=== PATIENT | male | born 1965 | race Caucasian/White ===

== ENCOUNTER 2019-11-09 23:58 | Inpatient (IN) | payer MEDICAID ==
[~2019-11-09] VITALS: Ht 180.3 cm; Wt 95.3 kg
--- NOTE | 2019-11-09 23:58 | NUR ---
PT [facility]. TAKEN TO BED 4
[2019-11-10 00:03] VITALS: BP 141/76
--- NOTE | 2019-11-10 00:03 | NUR ---
54 Y/O MALE BIBA FROM [facility]. PRESENTS TO ED, C/O CHEST PAIN THAT STARTED 30 MINS PRIOR COMING TO ED. PT STATES HAVING ARGUMENT WITH GIRLFRIEND PRIOR TO HAVING SYMPTOM. CHEST PAIN DOES NOT RADIATE, 10/10 PAIN SCALE. HX OF CVA LAST MARCH, NO DEFICITS NOTED DURING ASSESSMENT. PT RECEIVED 1 DOSE OF NITRO AND 1 DOSE OF ASPIRIN. PT STATES NO RELIEF. PT ABLE TO AMBULATE WITH SLOW STEADY GAIT. PT VSS. PLACED ON MONITOR. ERMD AWARE. WILL CONTINUE TO MONITOR.
--- NOTE | 2019-11-10 00:25 | NUR ---
LAB AT BEDSIDE DRAWING BLOOD
[2019-11-10 00:53] LABS: BASOPHILS % (AUTO) 0.8 % (0.0-2.0); EOSINOPHILS # (AUTO) 0.2 K/uL (0-0.4); EOSINOPHILS % (AUTO) 3.4 % (0.0-4.0); HEMATOCRIT 41.7 % (36-52); HEMOGLOBIN 14.2 g/dL (12.0-18.0); LYMPHOCYTES % (AUTO) 32.9 % (20.5-51.1); MEAN CORPUSCULAR HEMOGLOBIN 32 pg (27-31); MEAN CORPUSCULAR HGB CONC 34 g/dL (33-37); MEAN CORPUSCULAR VOLUME 94.9 fL (80-94); MONOCYTES # (AUTO) 0.4 K/uL (0.8-1.0); MONOCYTES % (AUTO) 6.4 % (1.7-9.3); NEUTROPHILS # (AUTO) 3.5 K/uL (1.8-7.7); NEUTROPHILS % (AUTO) 56.5 % (42.2-75.2); PLATELET COUNT (AUTO) 249 K/uL (140-450); RED CELL DISTRIBUTION WIDTH 13.1 % (11.6-13.7); WHITE BLOOD COUNT (AUTO) 6.2 K/uL (4.8-10.8)
[2019-11-10 01:02] LABS: ANION GAP 14.2 (8-16); CARBON DIOXIDE 25.7 mmol/L (21-32); POTASSIUM 3.9 mmol/L (3.5-5.1)
[2019-11-10 01:07] LABS: ALBUMIN 3.8 g/dL (3.4-5.0); TOTAL BILIRUBIN 0.2 mg/dL (0.0-1.0)
[2019-11-10] MEDS ORDERED: KETOROLAC 30 MG/ML VIAL IVP ONE (01:30)
--- NOTE | 2019-11-10 01:42 | NUR ---
Dr. Amato examining patient.
[2019-11-10] MEDS ORDERED: NACL 0.9% 1,000 ML IV ONE (01:55)
[2019-11-10] MEDS ORDERED: fentaNYL 0.05 MG/ML VIAL IVP ONE (02:10)
--- NOTE | 2019-11-10 02:32 | NUR ---
PT PLACED ON 2L O2 VIA [facility]
[2019-11-10] MEDS ORDERED: ASPI-1205 PO (02:42)
[2019-11-10] MEDS ORDERED: NACL 0.9% 1,000 ML IV SCH (02:42)
[2019-11-10] MEDS ORDERED: MORPHINE SULFATE 2 MG/ML SYR IVP PRN (02:45)
[2019-11-10] MEDS ORDERED: DOCUSATE SODIUM 100 MG GELCAP PO PRN (02:45)
[2019-11-10] MEDS ORDERED: HYDROcodone/APAP 7.5/325 MG 1 TAB PO PRN (02:45)
[2019-11-10] MEDS ORDERED: ACETAMINOPHEN 325 MG TAB PO PRN (02:45)
[2019-11-10] MEDS ORDERED: ONDANSETRON 4 MG/2 ML VIAL IM/IVP PRN (02:45)
[2019-11-10] MEDS ORDERED: NITROGLYCERIN 0.4 MG TAB SL ONE (02:50)
[2019-11-10 03:01] LABS: APPEARANCE,URINE CLEAR (CLEAR); BILIRUBIN,URINE NEGATIVE (NEGATIVE); BLOOD, URINE 1+ (NEGATIVE); COLOR,URINE YELLOW (YELLOW); LEUKOCYTE ESTERASE ,URINE NEGATIVE (NEGATIVE); NITRITE, URINE NEGATIVE (NEGATIVE); PH,URINE 5.5 (5.0-9.0); UGLUCOSE NEGATIVE (NEGATIVE)
[2019-11-10 03:09] LABS: RBC,URINE 0-5 /HPF (0-5); WBC,URINE 0-5 /HPF (0-5)
[2019-11-10 03:14] LABS: PROTHROMBIN TIME 9.6 secs (10.8-13.4)
[2019-11-10 03:15] LABS: BARBITURATE, URINE NEG. ng/ml (NEG <=200); BENZODIAZEPINE, URINE NEG. ng/mL (NEG <=200); CANNABINOID, URINE NEG. ng/mL (NEG <=50); COCAINE, URINE NEG. ng/mL (NEG <=300); OPIATE, URINE NEG. ng/mL (NEG <=2000)
[2019-11-10 03:15] LABS: CHOL/HDL RATIO 6.2 (1-4.5); FREE T4 (FREE THYROXINE) 0.83 ng/dL (0.76-1.46); MAGNESIUM 2.1 mg/dL (1.8-2.4); PHOSPHORUS 4.6 mg/dL (2.5-4.9); THYROID STIMULATING HORMONE 1.46 uIU/mL (0.34-3.74)
[2019-11-10 03:20] VITALS: BP 152/81
--- NOTE | 2019-11-10 03:20 | NUR ---
RECEIVED FROM ED VIA [facility]. BEDSIDE REPORT GIVEN BY ED NURSE DEL. PT HAS A NASAL CANNULA BUT CAN TOLERATE ROOM AIR. PT IS AMBULATORY. IV ACCESS ON RIGHT FOOT 22 AND LEFT AC 20 GAUGE. ORIENTED TO ROOM. MRSA SWAB DONE AND SENT TO LAB. INITIAL ASSESSMENT DONE. INITIAL VITALS TAKEN. CALL LIGHT PLACED WITHIN PATIENT REACH. BOARD UPDATED. BED IN LOW, SAFETY MEASURES IN PLACE. WILL CONTINUE TO MONITOR PATIENT.
--- NOTE | 2019-11-10 03:20 | NUR ---
PT ADMITTED TO [facility] RM 111B. TRANSFERRED PT VIA [facility] WITH DAVY EMT; STABLE CONDITION. REPORT GIVEN TO HAILEY COTE. TRANSFER OF CARE AT THIS TIME.
[2019-11-10 03:23] LABS: PHENCYCLIDINE SCREEN,URINE NEG. ng/mL (NEG <=25)
[2019-11-10] MEDS ORDERED: KETOROLAC 15 MG/ML VIAL IVP PRN (03:30)
--- NOTE | 2019-11-10 06:30 | NUR ---
0600-PATIENT CALLED THROUGH CALL LIGHT. PATIENT WANTED TO NOTIFY THAT HE WANTED TO SIGN OFF FROM THE HOSPITAL. I EDUCATED THE PATIENT ABOUT GOING AGAINST MEDICAL ADVICE AND HE SAID HE WANTED TO STILL LEAVE. I NOTIFIED THE RESIDENT ON DUTY, DR. JURADO, AND SHE CAME TO TALK TO THE PATIENT. SHE EDUCATED THE PATIENT ABOUT THE RISK OF LEAVING AGAINST MEDICAL ADVICE AND PATIENT STILL DECIDED HE WANTED TO LEAVE. 0610- AMA FORM SIGNED BY MD AND PATIENT. ID BAND REMOVED. IV LINES REMOVED. TELE LEADS REMOVED. PATIENT CHANGED OUT OF GOWN. PATIENT TOOK ALL HIS BELONGINGS. 0630- PATIENT OUT OF FACILITY.
--- NOTE | 2019-11-10 06:40 | NUR ---
PATIENT HAS BEEN SCREENED AND CATEGORIZED MODERATE NUTRITION RISK. PATIENT WILL BE SEEN WITHIN 3-5 DAYS OF ADMISSION. 11/12/19-11/14/19 RAE SHAVER MS, RDN
[2019-11-10] MEDS ORDERED: ATORVASTATIN 20 MG TAB PO SCH (09:00)
[2019-11-10] MEDS ORDERED: PANTOPRAZOLE 40 MG TABEC PO SCH (09:00)
[2019-11-10] MEDS ORDERED: ASPIRIN 81 MG TAB.CHEW PO SCH (09:00)
[2019-11-10] MEDS ORDERED: METOPROLOL SUCCINATE 50 MG TABER PO SCH (09:00)
[2019-11-10] MEDS ORDERED: LISINOPRIL 5 MG TAB PO SCH (09:00)
[2019-11-11 08:07] LABS: T4 (THYROXINE) 6.2 ug/dL (4.5-12.0)
== END 2019-11-10 06:35 | disposition left against medical advice (07) | DRG 243 ==
LOC: MED 23:58 → MTU 11-10 02:46
PROVIDERS: ADMIT General Practice; ATTEND General Practice
DX: K21.9 Gastro-esophageal reflux disease without esophagitis (principal); I69.354 Hemiplegia and hemiparesis following cerebral infarction affecting left non-dominant side; R65.10 Systemic inflammatory response syndrome (SIRS) of non-infectious origin without acute organ dysfunction; M94.0 Chondrocostal junction syndrome [Tietze]; E78.5 Hyperlipidemia, unspecified; Z53.29 Procedure and treatment not carried out because of patient's decision for other reasons; K52.9 Noninfective gastroenteritis and colitis, unspecified; Z88.5 Allergy status to narcotic agent; Z79.82 Long term (current) use of aspirin
CPT/HCPCS: 36415; 71045; 80053; 80305; 81001; 82150; 83036; 83605; 83690; 83735; 83880; 84100; 84436; 84439; 84443; 84479; 84484; 85025; 85379; 85610; 85730; 87081; 93005; 96361; 96374; 96375; 99285; J1885; J3010; J7030; Q0092